=== PATIENT | female | born 1970 | race African-American/Black ===

== ENCOUNTER 2022-08-29 08:46 | Emergency (ER) | payer MEDICAID ==
[~2022-08-29] VITALS: Ht 172.7 cm; Wt 81.0 kg
[2022-08-29] MEDS ORDERED: GUAIFENESIN 200MG/10ML SUGAR FREE UDC PO ONE (10:00)
[2022-08-29] MEDS ORDERED: TUSSL MT (10:59)
[2022-08-29 11:11] VITALS: BP 142/86
== END 2022-08-29 11:12 | disposition home or self-care (01) ==
LOC: ER 08:46
DX: B34.9 Viral infection, unspecified (principal); I10 Essential (primary) hypertension
CPT/HCPCS: 71045; 99283

== ENCOUNTER 2024-05-27 12:46 | Emergency (ER) | payer SELFPAY ==
[~2024-05-27] VITALS: Ht 170.2 cm; Wt 75.0 kg
[~2024-05-27 12:46] MED LIST: TUSSL MT
[2024-05-27 13:01] VITALS: O2SAT 100
[2024-05-27] MEDS: KETOROLAC 30MG/ML VIAL IM ONE (14:34)
[2024-05-27] MEDS ORDERED: NAPR-681 MT (14:42)
[2024-05-27 14:54] VITALS: BP 138/82; PULSE 84; RESP 18; TEMP 97.8
== END 2024-05-27 15:19 | disposition home or self-care (01) ==
LOC: ER 13:14
DX: M16.12 Unilateral primary osteoarthritis, left hip (principal); G89.29 Other chronic pain; M25.552 Pain in left hip; I10 Essential (primary) hypertension; Z98.890 Other specified postprocedural states
CPT/HCPCS: 73502; 99283

== ENCOUNTER 2024-07-28 08:09 | Emergency (ER) | payer MEDICAID ==
[~2024-07-28] VITALS: Ht 167.6 cm; Wt 75.0 kg
[~2024-07-28 08:09] MED LIST changes: +NAPR-681 MT
[2024-07-28 08:12] VITALS: TEMP 98.7; O2SAT 98
[2024-07-28 08:50] LABS: HEMOGLOBIN 13.7 g/dL (12.0-16.0); MEAN CORPUSCULAR HEMOGLOBIN 32.1 pg (28.0-32.0); MEAN CORPUSCULAR HGB CONC 33.5 g/dL (31.0-37.0); MEAN CORPUSCULAR VOLUME 95.6 fL (81.0-99.0); PLATELET 242 x1000/uL (130-400); RED BLOOD CELL COUNT 4.29 mill/uL (4.2-5.4); RED CELL DISTRIBUTION WIDTH 13.7 % (11.6-14.6)
[2024-07-28 08:57] VITALS: BP 139/94; PULSE 93; RESP 18
[2024-07-28] MEDS: KETOROLAC 15MG/ML VIAL IM ONE (08:57)
[2024-07-28 09:03] LABS: CHLORIDE 108 mEq/L (98-107); POTASSIUM 3.6 mEq/L (3.5-5.1); SODIUM 139 mEq/L (136-145)
[2024-07-28 09:04] LABS: CARBON DIOXIDE 22 mEq/L (21-32)
[2024-07-28 09:09] LABS: CREATININE 0.6 mg/dL (0.6-1.0); GLUCOSE 93 mg/dL (70-105); UREA NITROGEN BLOOD 7 mg/dL (9-23)
[2024-07-28 09:11] LABS: ALANINE AMINOTRANSFERASE 39 IU/L (10-49); ALBUMIN 4.6 g/dL (3.2-4.8); ASPARTATE AMINOTRANSFERASE 67 IU/L (<34); BILIRUBIN TOTAL 0.3 mg/dL (0.1-1.0); PROTEIN TOTAL 7.9 g/dL (6.0-8.3)
[2024-07-28 09:41] LABS: HCG SCREEN NEGATIVE
== END 2024-07-28 12:15 | disposition home or self-care (01) ==
LOC: ER 08:09
DX: M25.552 Pain in left hip (principal); M54.50 Low back pain, unspecified; Z98.890 Other specified postprocedural states
CPT/HCPCS: 99285; 71250; 80053; 81025; 84703; 85027; 36415; 74176; 96372; J1885